=== PATIENT | female | born 1970 | race Hispanic/Latino ===

== ENCOUNTER 2017-07-20 12:35 | Emergency (ER) | payer SELFPAY ==
[2017-07-20 13:45] LABS: Bilirubin Negative (Negative); Blood, Urine Negative (Negative); Glucose, Urine (Dipstick) Negative (Negative); Ketone, Urine Negative (Negative); Nitrite Negative (Negative); Protein, Urine (Dipstick) Negative (Neg-Trace); Urobilinogen 0.2 mg/dL (0.2-1.0)
[2017-07-20] MEDS ORDERED: Fluconazole 100 MG TAB PO SCH (14:45)
== END 2017-07-20 15:20 | disposition home or self-care (01) ==
LOC: ERS 12:35
DX: B37.49 Other urogenital candidiasis (principal); L20.9 Atopic dermatitis, unspecified; K64.4 Residual hemorrhoidal skin tags; F17.210 Nicotine dependence, cigarettes, uncomplicated
CPT/HCPCS: 81003; 99283

== ENCOUNTER 2017-07-27 15:58 | Emergency (ER) | payer SELFPAY | END 2017-07-27 16:15 | disposition home or self-care (01) | LOC: ERS 15:58 | DX: K05.10 Chronic gingivitis, plaque induced (principal); K02.9 Dental caries, unspecified; F17.210 Nicotine dependence, cigarettes, uncomplicated | CPT/HCPCS: 99282 ==

== ENCOUNTER 2017-11-24 11:04 | Emergency (ER) | payer SELFPAY ==
[2017-11-24 11:27] LABS: Bilirubin Negative (Negative); Blood, Urine Negative (Negative); Glucose, Urine (Dipstick) Negative (Negative); Leukocyte Negative (Negative); Nitrite Negative (Negative); Protein, Urine (Dipstick) Negative (Neg-Trace); Urobilinogen 0.2 mg/dL (0.2-1.0)
[2017-11-24 11:31] LABS: Clarity Clear (Clear)
[2017-11-24 11:36] LABS: #Basophils 0.1 thou/uL (0.0-0.2); #Eosinphils 0.2 thou/uL (0.0-0.7); #Lymphocytes 0.8 thou/uL (1.20-3.40); #Monocytes 0.4 thou/uL (0.11-0.59); #Neutrophils 5.4 thou/uL (1.40-6.50); %Basophils 0.9 % (0.0-1.0); %Eosinophils 2.7 % (0.0-10.0); %Lymphocytes 12.2 % (21.0-51.0); %Monocytes 5.2 % (0.0-10.0); %Neutrophils 79.1 % (42.0-75.0); Mean Corpuscular HGB CONC 34.7 g/dL (32.0-36.0); Mean Corpuscular Hemoglobin 33.3 pg (27.0-31.0); Mean Platelet Volume 8.4 fL (7.4-10.4); Platelet Count 310 thou/uL (130-400); RBC Distribution Width 12.7 % (11.5-14.5); Red Blood Cell (RBC) Count 4.52 mill/uL (4.20-5.40); White Blood Cell (WBC) Count 6.8 thou/uL (4.8-10.8)
[2017-11-24 11:49] LABS: Prothrombin Time 13.3 SEC (12.0-14.7)
[2017-11-24 12:11] LABS: ALT (SGPT) 17 U/L (8-55); AST (SGOT) 15 U/L (5-34); Albumin 3.8 g/dL (3.5-5.0); Alkaline Phosphatase 85 U/L (40-150); Anion Gap 10 mmol/L (10-20); BUN (Urea Nitrogen) 9 mg/dL (7.0-18.7); Bilirubin, Total 0.4 mg/dL (0.2-1.2); Calc. Creatinine Clearance 0 mL/min (70-130); Calcium 9.2 mg/dL (7.8-10.44); Carbon Dioxide 27 mmol/L (22-29); Chloride 105 mmol/L (98-107); Estimated GFR-MDRD 87; Globulin 3.5 g/dL (2.4-3.5); Glucose 88 mg/dL (70-105); Potassium 3.9 mmol/L (3.5-5.1); Protein, Total 7.3 g/dL (6.0-8.3); Sodium 138 mmol/L (136-145)
--- NOTE | 2017-11-24 12:56 | CT ---
CT ABDOMEN AND PELVIS WITH CONTRAST: Date: 11/24/17 HISTORY: Abdominal pain. Diarrhea. Black stool. COMPARISON: CT abdomen and pelvis from 2011. CT thoracic spine from 11/19/16. FINDINGS: The lung bases are clear. No pericardial effusion. Prior cholecystectomy. Liver and pancreas are unremarkable. Mild atherosclerotic plaque of the aortoiliac system. No aneurys mal dilatation. There is a lobular appearance of the right kidney, which may be sequelae of retained lobulation versus multiple old infarcts or scarring from reflux. The appendix is visualized and is normal. No dilated loops of large or small bowel. No free intraperi toneal gas or fluid. No adenopathy. There is enlarged right L5 transverse process which has abnormal articulation with the sacrum. There also appears to be an old fracture through the right hemisacrum. IMPRESSION: 1. No acute intraabdominal process. 2. Old right hemisacral fracture. POS: [facility]
[2017-11-24] MEDS ORDERED: Ketorolac Tromethamine 30 MG/ML VIAL ONE (13:05)
[2017-11-24] MEDS ORDERED: ISOVUE-370 76%-LOCM 1 ML ONE (14:30)
== END 2017-11-24 13:15 | disposition home or self-care (01) ==
LOC: ERS 11:04
DX: R10.30 Lower abdominal pain, unspecified (principal); F17.210 Nicotine dependence, cigarettes, uncomplicated
CPT/HCPCS: 36415; 74177; 80053; 81003; 82274; 85025; 85610; 86900; 86901; 96374; 99406; J1885

== ENCOUNTER 2020-07-16 12:14 | Emergency (ER) | payer SELFPAY ==
[2020-07-16] MEDS ORDERED: Morphine 4 MG/ML VIAL ONE (12:48)
[2020-07-16] MEDS ORDERED: Ondansetron PF 4 MG/2 ML Vial ONE (12:48)
[2020-07-16 13:08] LABS: #Basophils 0.1 thou/uL (0.0-0.2); #Eosinphils 0.3 thou/uL (0.0-0.7); #Monocytes 1.1 thou/uL (0.11-0.59); #Neutrophils 7.4 thou/uL (1.40-6.50); %Basophils 0.7 % (0.0-1.0); %Eosinophils 2.4 % (0.0-10.0); %Lymphocytes 25.3 % (21.0-51.0); %Monocytes 9.3 % (0.0-10.0); %Neutrophils 62.4 % (42.0-75.0); Hemoglobin 14.5 g/dL (12.0-16.0); Mean Corpuscular HGB CONC 32.7 g/dL (32.0-36.0); Mean Corpuscular Hemoglobin 30.6 pg (27.0-31.0); Mean Corpuscular Volume 93.8 fL (78.0-98.0); Mean Platelet Volume 9.2 fL (7.4-10.4); Platelet Count 251 thou/uL (130-400); RBC Distribution Width 12.4 % (11.5-14.5); Red Blood Cell (RBC) Count 4.72 mill/uL (4.20-5.40); White Blood Cell (WBC) Count 11.9 thou/uL (4.8-10.8)
[2020-07-16 13:23] LABS: ALT (SGPT) 17 U/L (8-55); AST (SGOT) 13 U/L (5-34); Albumin 3.7 g/dL (3.5-5.0); Alkaline Phosphatase 94 U/L (40-110); Anion Gap 14 mmol/L (10-20); BUN (Urea Nitrogen) 5 mg/dL (7.0-18.7); Bilirubin, Total 0.7 mg/dL (0.2-1.2); Calc. Creatinine Clearance 0 mL/min (70-130); Calcium 8.9 mg/dL (7.8-10.44); Carbon Dioxide 22 mmol/L (22-29); Chloride 106 mmol/L (98-107); Estimated GFR-MDRD 86; Globulin 3.5 g/dL (2.4-3.5); Glucose 110 mg/dL (70-105); Lipase 4 U/L (8-78); Potassium 3.5 mmol/L (3.5-5.1); Protein, Total 7.2 g/dL (6.0-8.3); Sodium 138 mmol/L (136-145)
[2020-07-16 13:34] LABS: Bilirubin Negative (Negative); Blood, Urine Negative (Negative); Clarity Clear (Clear); Glucose, Urine (Dipstick) Normal (Negative); Ketone, Urine Negative (Negative); Leukocyte Negative Leu/uL (Negative); Nitrite Negative (Negative); Protein, Urine (Dipstick) Negative (Neg-Trace); Specific Gravity, Urine 1.002 (1.002-1.036); Urobilinogen Normal mg/dL (Less than 2)
--- NOTE | 2020-07-16 13:37 | CT ---
CT ABDOMEN PELVIS WITHOUT IV CONTRAST: HISTORY:Left flank pain COMPARISON: Contrast-enhanced exam of 11/24/2017 DISCLAIMER: Absence of oral and IV contrast reduces the sensitivity of the exam particularly for the evaluation of solid organs and bowel. FINDINGS: The lung bases are clear. No free air or free fluid is seen in the abdomen or pelvis. The patient is post cholecystectomy. No calculi are seen in the kidneys, ureters or the urinary bladder. No hydroureteronephrosis seen on either side. The small bowel loops are not abnormally dilated. A normal-appearing appendix is present. There is co lonic diverticulosis. There is thickening of the colon in the left lower quadrant with pericolonic inflammatory changes. No abnormally loculated fluid collection is seen to suggest abscess formation There are vascular calcifications without evidence of aneurysmal dilatation of the abdominal aorta. U terus is present. Old right hemisacral fracture is again seen. There is metallic hardware in the right femur. IMPRESSION: 1. No CT evidence of urinary tract calculi or obstruction. 2. Colonic diverticulosis with diverticulitis in the left lower quadrant.
== END 2020-07-16 14:17 | disposition home or self-care (01) ==
LOC: ERS 12:14
DX: K57.32 Diverticulitis of large intestine without perforation or abscess without bleeding (principal); F17.210 Nicotine dependence, cigarettes, uncomplicated
CPT/HCPCS: 74176; 80053; 81003; 83690; 85025; 96374; 96375; J2270; J2405

== ENCOUNTER 2022-05-28 20:05 | Inpatient (IN) | payer SELFPAY ==
[2022-05-28] MEDS ORDERED: Nitroglycerin 2% Ointment 1 INCH/1 GM Packet ONE (20:39)
[2022-05-28] MEDS ORDERED: Ondansetron PF 4 MG/2 ML Vial ONE (20:39)
[2022-05-28 20:59] LABS: ALT (SGPT) 20 U/L (8-55); AST (SGOT) 21 U/L (5-34); Albumin 4.1 g/dL (3.5-5.0); Alkaline Phosphatase 81 U/L (40-110); Anion Gap 16 mmol/L (10-20); BUN (Urea Nitrogen) 8 mg/dL (9.8-20.1); Bilirubin, Total 0.2 mg/dL (0.2-1.2); CK (CPK) 49 U/L (29-168); Calc. Creatinine Clearance 0 mL/min (70-130); Calcium 9.4 mg/dL (7.8-10.44); Carbon Dioxide 19 mmol/L (22-29); Chloride 108 mmol/L (98-107); Estimated GFR 85; Globulin 3.7 g/dL (2.4-3.5); Glucose 99 mg/dL (70-105); Lipase 13 U/L (8-78); Magnesium 2.1 mg/dL (1.6-2.6); Potassium 3.8 mmol/L (3.5-5.1); Protein, Total 7.8 g/dL (6.0-8.3); Sodium 139 mmol/L (136-145)
[2022-05-28 21:02] LABS: White Blood Cell (WBC) Count 17.7 thou/uL (4.8-10.8)
[2022-05-28 21:03] LABS: #Neutrophils 12.7 thou/uL (1.40-6.50); %Basophils 0.6 % (0.0-1.0); %Eosinophils 1.4 % (0.0-10.0); %Lymphocytes 21.4 % (21.0-51.0); %Monocytes 5.3 % (0.0-10.0); %Neutrophils 71.5 % (42.0-75.0); Hemoglobin 15.6 g/dL (12.0-16.0); Mean Corpuscular HGB CONC 36.2 g/dL (32.0-36.0); Mean Corpuscular Hemoglobin 34.7 pg (27.0-31.0); Mean Corpuscular Volume 95.9 fL (78.0-98.0); Mean Platelet Volume 8.1 fL (7.4-10.4); Platelet Count 317 thou/uL (130-400); RBC Distribution Width 14.6 % (11.5-14.5); Red Blood Cell (RBC) Count 4.48 mill/uL (4.20-5.40)
[2022-05-28 21:04] LABS: #Basophils 0.1 thou/uL (0.0-0.2); #Eosinphils 0.2 thou/uL (0.0-0.7); #Lymphocytes 3.8 thou/uL (1.20-3.40); #Monocytes 0.9 thou/uL (0.11-0.59)
[2022-05-28] MEDS ORDERED: Aspirin 325 MG TAB ONE (23:19)
[2022-05-29 00:14] LABS: Troponin I Less than 0.010 ng/mL (< 0.028)
[2022-05-29 03:55] LABS: Troponin I Less than 0.010 ng/mL (< 0.028)
[2022-05-29] MEDS ORDERED: Acetaminophen 500 MG TAB ONE (08:22)
[2022-05-29] MEDS ORDERED: Acetaminophen 325 MG TAB PO PRN (11:34)
[2022-05-29] MEDS ORDERED: Lidocaine 2% Viscous Solution 20 ML, Aluminum & Magnesium Hydroxide 30 ML, Donnatal Eli... SSW SCH (11:45)
[2022-05-29 11:53] VITALS: BMI 33.7
[2022-05-30] MEDS ORDERED: Regadenoson 0.4 MG/5 ML SYRINGE ONE (08:55)
[2022-05-30] MEDS ORDERED: Enoxaparin Sodium 40 MG/0.4 ML SYRINGE SC SCH (09:00)
[2022-05-30] MEDS ORDERED: Aspirin 325 mg Enteric Coated Tablet PO SCH (09:00)
[2022-05-30 15:40] VITALS: BP 146/67; TEMP 97.4
== END 2022-05-30 15:59 | disposition home or self-care (01) | DRG 392 ==
LOC: ERS 20:05 → ERHOLD 23:28 → 2SW 05-29 09:37 → OBSVTOIN 05-29 16:20
PROVIDERS: ADMIT Hospitalist; ATTEND Hospitalist
DX: K21.9 Gastro-esophageal reflux disease without esophagitis (principal); Z20.822 Contact with and (suspected) exposure to COVID-19; F17.210 Nicotine dependence, cigarettes, uncomplicated; F10.10 Alcohol abuse, uncomplicated; Z28.21 Immunization not carried out because of patient refusal; Z90.49 Acquired absence of other specified parts of digestive tract; Z98.890 Other specified postprocedural states; Z82.3 Family history of stroke; Z82.49 Family history of ischemic heart disease and other diseases of the circulatory system; Z71.6 Tobacco abuse counseling
CPT/HCPCS: 36415; 71045; 71275; 78452; 80053; 82550; 83605; 83690; 83735; 84484; 85025; 93005; 93017; 93923; 96374; A9500; G0378; J2405; J2785; U0003; U0005

== ENCOUNTER 2022-08-16 12:52 | Emergency (ER) | payer SELFPAY ==
[2022-08-16 13:21] LABS: #Basophils 0.1 thou/uL (0.0-0.2); #Eosinphils 0.1 thou/uL (0.0-0.7); #Lymphocytes 2.4 thou/uL (1.20-3.40); #Monocytes 0.9 thou/uL (0.11-0.59); #Neutrophils 4.7 thou/uL (1.40-6.50); %Basophils 1.1 % (0.0-1.0); %Eosinophils 1.7 % (0.0-10.0); %Lymphocytes 29.1 % (21.0-51.0); %Monocytes 10.4 % (0.0-10.0); %Neutrophils 57.7 % (42.0-75.0); Mean Corpuscular HGB CONC 35.4 g/dL (32.0-36.0); Mean Corpuscular Hemoglobin 34.6 pg (27.0-31.0); Mean Corpuscular Volume 97.8 fL (78.0-98.0); Mean Platelet Volume 8.8 fL (7.4-10.4); Platelet Count 248 thou/uL (130-400); RBC Distribution Width 12.9 % (11.5-14.5); Red Blood Cell (RBC) Count 4.06 mill/uL (4.20-5.40); White Blood Cell (WBC) Count 8.2 thou/uL (4.8-10.8)
[2022-08-16 13:59] LABS: SARS-CoV-2 NAA Rapid Test Not Detected (NotDetected)
[2022-08-16 15:03] LABS: ALT (SGPT) 19 U/L (8-55); AST (SGOT) 29 U/L (5-34); Albumin 3.9 g/dL (3.5-5.0); Alkaline Phosphatase 79 U/L (40-110); Anion Gap 14 mmol/L (10-20); BUN (Urea Nitrogen) 11 mg/dL (9.8-20.1); Bilirubin, Total 0.6 mg/dL (0.2-1.2); CK (CPK) 130 U/L (29-168); Calc. Creatinine Clearance 0 mL/min (70-130); Carbon Dioxide 19 mmol/L (22-29); Chloride 110 mmol/L (98-107); Estimated GFR 76; Globulin 3.4 g/dL (2.4-3.5); Glucose 97 mg/dL (70-105); Lipase 22 U/L (8-78); Potassium 4.7 mmol/L (3.5-5.1); Protein, Total 7.3 g/dL (6.0-8.3); Sodium 138 mmol/L (136-145)
== END 2022-08-16 15:39 | disposition home or self-care (01) ==
LOC: ERS 12:52
DX: J06.9 Acute upper respiratory infection, unspecified (principal); K21.9 Gastro-esophageal reflux disease without esophagitis; E78.5 Hyperlipidemia, unspecified; F17.210 Nicotine dependence, cigarettes, uncomplicated; Z20.822 Contact with and (suspected) exposure to COVID-19; Z79.899 Other long term (current) drug therapy
CPT/HCPCS: 36415; 71045; 80053; 82550; 83690; 84484; 85025; 93005

== ENCOUNTER 2023-06-08 18:12 | Inpatient (IN) | payer SELFPAY ==
[~2023-06-08 18:12] MED LIST: Iopamidol-370 76% 500 ML MDV (1 ML CHARGE) ONE
[2023-06-08] MEDS ORDERED: fentaNYL 50 mcg/mL 1 mL Vial ONE (18:37)
[2023-06-08 19:14] LABS: #Basophils 0.1 thou/uL (0.0-0.2); #Eosinphils 0.3 thou/uL (0.0-0.7); #Monocytes 0.9 thou/uL (0.11-0.59); #Neutrophils 6.8 thou/uL (1.40-6.50); %Basophils 0.6 % (0.0-1.0); %Eosinophils 2.6 % (0.0-10.0); %Lymphocytes 27.6 % (21.0-51.0); %Monocytes 8.3 % (0.0-10.0); %Neutrophils 60.5 % (42.0-75.0); Hematocrit 35.2 % (36.0-47.0); Hemoglobin 12.9 g/dL (12.0-16.0); Mean Corpuscular HGB CONC 36.6 g/dL (32.0-36.0); Mean Corpuscular Hemoglobin 35.5 pg (27.0-31.0); Mean Platelet Volume 10.8 fL (7.4-10.4); Platelet Count 304 10x3/uL (130-400); RBC Distribution Width 18.8 % (11.5-14.5); Red Blood Cell (RBC) Count 3.63 mill/uL (4.20-5.40); White Blood Cell (WBC) Count 11.2 10x3/uL (4.8-10.8)
[2023-06-08 19:40] LABS: Troponin I Less than 0.010 ng/mL (< 0.028)
[2023-06-08 19:44] LABS: ALT (SGPT) 15 U/L (8-55); AST (SGOT) 18 U/L (5-34); Albumin 4.1 g/dL (3.5-5.0); Alkaline Phosphatase 84 U/L (40-110); Anion Gap 13 mmol/L (10-20); BUN (Urea Nitrogen) 11 mg/dL (9.8-20.1); Bilirubin, Total 0.4 mg/dL (0.2-1.2); Calc. Creatinine Clearance 0 mL/min (70-130); Carbon Dioxide 20 mmol/L (22-29); Chloride 108 mmol/L (98-107); Estimated GFR 87; Globulin 3.6 g/dL (2.4-3.5); Glucose 96 mg/dL (70-105); Potassium 4.1 mmol/L (3.5-5.1); Protein, Total 7.7 g/dL (6.0-8.3); Sodium 137 mmol/L (136-145)
[2023-06-08] MEDS ORDERED: Morphine 4 MG/ML VIAL ONE (21:33)
[2023-06-08] MEDS ORDERED: Aspirin Chewable 81 MG TAB ONE (21:33)
[2023-06-08] MEDS ORDERED: Ondansetron ODT 4 MG TAB SL PRN (23:15)
[2023-06-08] MEDS ORDERED: Ondansetron PF 4 MG/2 ML Vial IVP PRN (23:15)
[2023-06-08] MEDS ORDERED: Acetaminophen 325 MG TAB PO PRN (23:15)
[2023-06-08 23:48] LABS: Troponin I Less than 0.010 ng/mL (< 0.028)
[2023-06-09] MEDS: Sodium Chloride 0.9% 1,000 ML IV SCH ×2 (01:43→08:14)
[2023-06-09] MEDS ORDERED: Rosuvastatin 20 MG TAB PO SCH ×2 (01:45→21:00)
[2023-06-09] MEDS ORDERED: Morphine 4 MG/ML VIAL SLOW IVP PRN (01:52)
[2023-06-09 01:53] VITALS: BMI 38.9
[2023-06-09 02:27] LABS: Troponin I Less than 0.010 ng/mL (< 0.028)
[2023-06-09] MEDS ORDERED: Ondansetron ODT 4 MG TAB PO PRN (03:34)
[2023-06-09] MEDS ORDERED: Nitroglycerin 0.4 MG TAB (25 Tab Bottle) SL PRN (03:34)
[2023-06-09] MEDS ORDERED: Ondansetron PF 4 MG/2 ML Vial IVP PRN (03:34)
[2023-06-09] MEDS ORDERED: Acetaminophen 325 MG TAB PO PRN (03:34)
[2023-06-09 06:38] LABS: Cardiac Risk 2.9 (Less than 4.5)
[2023-06-09] MEDS ORDERED: Aspirin Chewable 81 MG TAB PO SCH (09:00)
[2023-06-09] MEDS ORDERED: Famotidine 20 MG TAB PO SCH (09:00)
[2023-06-09] MEDS ORDERED: Regadenoson 0.4 MG/5 ML SYRINGE ONE (11:19)
[2023-06-09 15:19] VITALS: BP 147/68; TEMP 97.7
[2023-06-09] MEDS ORDERED: Diclofenac 1% 100 GM GEL TP SCH (17:00)
== END 2023-06-09 16:22 | disposition home or self-care (01) | DRG 313 ==
LOC: ERS 18:12 → 2SW 22:35
PROVIDERS: ADMIT Student in an Organized Health Care Education/Training Program; ATTEND Internal Medicine
DX: R07.89 Other chest pain (principal); I10 Essential (primary) hypertension; E78.5 Hyperlipidemia, unspecified; F17.210 Nicotine dependence, cigarettes, uncomplicated; K21.9 Gastro-esophageal reflux disease without esophagitis; Z79.899 Other long term (current) drug therapy; Z90.49 Acquired absence of other specified parts of digestive tract; Z98.890 Other specified postprocedural states; Z83.3 Family history of diabetes mellitus
CPT/HCPCS: 36415; 71045; 71275; 74174; 78452; 80053; 80061; 83880; 84443; 84484; 85025; 93005; 93017; 96374; 96375; A9500; J2270; J2785; J3010; J7050; Q9967

== ENCOUNTER 2024-09-02 10:25 | Observation (INO) | payer SELFPAY ==
[2024-09-02] MEDS ORDERED: Ketorolac Tromethamine 30 MG (1 mL) VIAL ONE (10:55)
[2024-09-02] MEDS ORDERED: Aspirin 325 MG TAB ONE (11:42)
[2024-09-02] MEDS ORDERED: hydrALAZINE 20 MG/ML VIAL ONE ×2 (12:03→13:16)
[2024-09-02 12:08] LABS: #Basophils 0.08 10x3/uL (0.0-0.2); %Basophils 1.1 % (0.0-1.0); %Eosinophils 2.8 % (0.0-10.0); %Lymphocytes 33.1 % (21.0-51.0); %Monocytes 7.9 % (0.0-10.0); %Neutrophils 54.8 % (42.0-75.0); Hematocrit 39.3 % (36.0-47.0); Hemoglobin 14.4 g/dL (12.0-16.0); Mean Corpuscular HGB CONC 36.6 g/dL (32.0-36.0); Mean Corpuscular Volume 98.3 fL (78.0-98.0); Mean Platelet Volume 11.2 fL (7.4-10.4); Platelet Count 397 10x3/uL (130-400); RBC Distribution Width 16.5 % (11.5-14.5)
[2024-09-02 12:35] LABS: Troponin I Less than 0.010 ng/mL (< 0.028)
[2024-09-02 13:08] LABS: ALT (SGPT) 11 U/L (8-55); AST (SGOT) 12 U/L (5-34); Albumin 3.7 g/dL (3.5-5.0); Alkaline Phosphatase 95 U/L (40-110); Anion Gap 12 mmol/L (10-20); BUN (Urea Nitrogen) 8 mg/dL (9.8-20.1); Bilirubin, Total 0.3 mg/dL (0.2-1.2); Calc. Creatinine Clearance 0 mL/min (70-130); Calcium 9.5 mg/dL (7.8-10.44); Carbon Dioxide 20 mmol/L (22-29); Chloride 109 mmol/L (98-107); Estimated GFR 90; Globulin 3.2 g/dL (2.4-3.5); Glucose 92 mg/dL (70-105); Potassium 4.8 mmol/L (3.5-5.1); Protein, Total 6.9 g/dL (6.0-8.3); Sodium 136 mmol/L (136-145)
[2024-09-02] MEDS ORDERED: Ondansetron PF 4 MG/2 ML Vial IVP PRN (13:46)
[2024-09-02] MEDS ORDERED: Ondansetron ODT 4 MG TAB PO PRN ×2 (13:46→14:35)
[2024-09-02] MEDS ORDERED: Senokot S 8.6-50 MG TAB PO PRN (13:46)
[2024-09-02] MEDS ORDERED: Acetaminophen 650 MG Suppository PR PRN (13:46)
[2024-09-02] MEDS ORDERED: Acetaminophen 325 MG TAB PO PRN (13:46)
[2024-09-02] MEDS ORDERED: Calcium Carbonate 500 MG ChewTAB PO PRN (13:46)
[2024-09-02] MEDS ORDERED: Lorazepam 2 MG/ML VIAL IM PRN (14:35)
[2024-09-02] MEDS ORDERED: Lorazepam 1 MG TAB PO PRN (14:35)
[2024-09-02] MEDS ORDERED: Nicotine 21 MG PATCH TD PRN (14:42)
[2024-09-02 14:45] LABS: Hemoglobin A1c 5.1 % (4.0-6.0)
[2024-09-02] MEDS ORDERED: Electrolyte Replacement Protocol 1 EACH FS SCH (14:45)
[2024-09-02] MEDS ORDERED: Electrolyte Replacement Protocol FS PRN (15:00)
[2024-09-02 15:19] LABS: Magnesium 1.9 mg/dL (1.6-2.6); Phosphorus 2.5 mg/dL (2.3-4.7)
[2024-09-02 15:33] LABS: Prothrombin Time 13.5 sec (12.0-14.7)
[2024-09-02 15:34] LABS: PTT 30.1 sec (22.9-36.1)
[2024-09-02 15:38] LABS: D-Dimer Test Less than 0.27 mcg/mL (0.27-0.43)
[2024-09-02] MEDS ORDERED: Thiamine HCl 200 MG/2 ML VIAL ONE (15:53)
[2024-09-02] MEDS ORDERED: Folic Acid 1 MG TAB ONE (15:53)
[2024-09-02] MEDS ORDERED: Multivit, Therapeutic 1 TAB ONE (15:53)
[2024-09-02] MEDS: Thiamine HCl 200 MG/2 ML VIAL SLOW IVP SCH (16:36)
[2024-09-02] MEDS: Multivit, Therapeutic 1 TAB PO SCH (16:37)
[2024-09-02] MEDS: Folic Acid 1 MG TAB PO SCH (16:37)
[2024-09-02] MEDS: Rosuvastatin 20 MG TAB PO SCH (21:01)
[2024-09-02] MEDS: Famotidine 20 MG TAB PO SCH (21:01)
[2024-09-02] MEDS: Magnesium 2 GM/50 ML(in water) 2 GM in Premix 1 BAG IVPB SCH (21:02)
[2024-09-03 02:06] LABS: Amphetamine Not Detected (NotDetected); Barbiturates Screen Not Detected (NotDetected); Benzodiazepine Screen Not Detected (NotDetected); Cocaine Metabolite Screen Detected (NotDetected); Methadone Not Detected (NotDetected); Methamphetamine Not Detected (NotDetected); Opiate Screen Not Detected (NotDetected); Oxycodone Screen Not Detected (NotDetected); Phencyclidine (PCP) Not Detected (NotDetected); THC/Cannabinoid Screen Detected (NotDetected); Tricyclic Screen Not Detected (NotDetected)
[2024-09-03 04:34] LABS: #Basophils 0.07 10x3/uL (0.0-0.2); %Basophils 0.7 % (0.0-1.0); %Eosinophils 2.4 % (0.0-10.0); %Lymphocytes 28.2 % (21.0-51.0); %Monocytes 9.3 % (0.0-10.0); %Neutrophils 59.2 % (42.0-75.0); Hematocrit 33.3 % (36.0-47.0); Hemoglobin 12.3 g/dL (12.0-16.0); Mean Corpuscular HGB CONC 36.9 g/dL (32.0-36.0); Mean Corpuscular Hemoglobin 35.5 pg (27.0-31.0); Mean Corpuscular Volume 96.2 fL (78.0-98.0); Platelet Count 367 10x3/uL (130-400); RBC Distribution Width 15.9 % (11.5-14.5); Red Blood Cell (RBC) Count 3.46 mill/uL (4.20-5.40)
[2024-09-03 05:30] LABS: Anion Gap 12 mmol/L (10-20); BUN (Urea Nitrogen) 15 mg/dL (9.8-20.1); Calc. Creatinine Clearance 0 mL/min (70-130); Calcium 8.2 mg/dL (7.8-10.44); Carbon Dioxide 20 mmol/L (22-29); Cardiac Risk 4.2 (Less than 4.5); Chloride 110 mmol/L (98-107); Cholesterol 158 mg/dl (< 200 Desired); Estimated GFR 86; Glucose 93 mg/dL (70-105); HDL Cholesterol 38 mg/dL (>60 Neg Risk); LDL Cholesterol, Calculated 92 mg/dL; Potassium 3.8 mmol/L (3.5-5.1); Sodium 138 mmol/L (136-145); Triglycerides 142 mg/dL (Less than 150)
[2024-09-03] MEDS: Aspirin 81 mg Enteric Coated Tablet PO SCH (08:32)
[2024-09-03] MEDS: Folic Acid 1 MG TAB PO SCH (08:32)
[2024-09-03] MEDS: Enoxaparin 40 MG (0.4 mL) SYRINGE SC SCH (08:32)
[2024-09-03] MEDS: Losartan 25 MG TAB PO SCH (08:33)
[2024-09-03] MEDS: Multivit, Therapeutic 1 TAB PO SCH (08:33)
[2024-09-03 12:31] VITALS: BP 175/85; TEMP 97.5
[2024-09-03] MEDS ORDERED: Lorazepam 1 MG TAB PO PRN (14:35)
[2024-09-04 12:52] LABS: Cardiolipin IgA Ab 1.7 APL-U/mL (<14 Negative); EliA APS New Method **** NEW METHOD ****
[2024-09-04] MEDS ORDERED: Lorazepam 1 MG TAB PO PRN (14:35)
[2024-09-05] MEDS ORDERED: Thiamine 100 MG TAB PO SCH (09:00)
[2024-09-05] MEDS ORDERED: Lorazepam 0.5 MG TAB PO PRN (14:35)
== END 2024-09-03 16:41 | disposition home or self-care (01) ==
LOC: ERS 10:25 → ERHOLD 13:54 → 2SE 18:50
PROVIDERS: ADMIT Hospitalist; ATTEND Family Medicine
PROC: B246ZZZ Ultrasonography of Right and Left Heart (ICD-10-PCS; principal; 2024-09-03)
DX: I63.81 Other cerebral infarction due to occlusion or stenosis of small artery (principal); I10 Essential (primary) hypertension; F14.10 Cocaine abuse, uncomplicated; F12.10 Cannabis abuse, uncomplicated; K21.9 Gastro-esophageal reflux disease without esophagitis; F17.200 Nicotine dependence, unspecified, uncomplicated; R29.90 Unspecified symptoms and signs involving the nervous system; Z79.899 Other long term (current) drug therapy; Z79.82 Long term (current) use of aspirin; E78.5 Hyperlipidemia, unspecified; F19.90 Other psychoactive substance use, unspecified, uncomplicated; F10.10 Alcohol abuse, uncomplicated; Z90.49 Acquired absence of other specified parts of digestive tract; Z98.890 Other specified postprocedural states
CPT/HCPCS: 36415; 36416; 70450; 70551; 72141; 80048; 80053; 80061; 80306; 83036; 83090; 83735; 84100; 84443; 84484; 85025; 85300; 85303; 85306; 85307; 85598; 85610; 85730; 86147; 93005; 93306; 93880; 96372; 96374; 96375; 96376; G0378; J0360; J1650; J1885; J3411; J3475